=== PATIENT | male | born 1945 | race Caucasian/White ===

== ENCOUNTER 2020-12-11 09:15 | Day surgery (SDC) | payer OTHER ==
[2020-12-07 13:34] LABS: MPV 8.3 fL (7.6-11.3); RBC Red Blood Cell Count 4.24 M/uL (4.33-5.43)
[2020-12-07 13:38] LABS: Protime INR 1.16
--- NOTE | 2020-12-07 13:48 | RAD REPORT ---
EXAM DESCRIPTION: Javad Merchant (2 Views)12/07/2020 1:37 pm CLINICAL HISTORY: Preop for genitourinary surgery COMPARISON: 2019 FINDINGS: The lungs appear clear of acute infiltrate. The heart is normal size IMPRESSION: No acute abnormalities displayed
[2020-12-07 14:13] LABS: Potassium 4.7 mmol/L (3.5-5.1)
--- NOTE | 2020-12-10 07:10 | EKG ---
Test Date: 2020-12-07 Test Time: 12:05:44 Marking Stitcher: PAUL MEASUREMENT RESULTS: Intervals: Rate: 54 CO: 152 QRSD: 88 QT: 396 QTc: 375 [place]: P: 61 CO: 152 QRS: 54 T: 21 INTERPRETIVE STATEMENTS: Sinus bradycardia with occasional premature ventricular complexes Otherwise normal ECG Compared to ECG 10/26/2019 12:37:03 Ventricular premature complex(es) now present Electronically Signed On 12-10-20 07:05:04 CDT by Catarino Franklin
[2020-12-11] MEDS ORDERED: Ringers Lactate 1,000 ML IV ONE (10:00)
[2020-12-11] MEDS ORDERED: CEFAZOLIN/NS 1gm 1 GM/50 ML BAG ONE (10:00)
[2020-12-11] MEDS ORDERED: MIDAZOLAM HCL 2 MG/2 ML INJ ONE (11:40)
[2020-12-11] MEDS ORDERED: FENTANYL CITR 100 MCG/2 ML ONE (11:40)
[2020-12-11] MEDS ORDERED: propofoL 200 MG/20 ML VIAL IV ONE (11:40)
[2020-12-11] MEDS ORDERED: LIDOCAINE 1% MPF 5 ML VIAL ONE (11:41)
[2020-12-11] MEDS ORDERED: dexAMETHasone 10 MG/ML VIAL ONE (12:31)
[2020-12-11] MEDS ORDERED: GLYCOPYRROLATE 0.2 MG/ML SYR ONE (12:53)
[2020-12-11] MEDS ORDERED: EPHEDRINE SULF 50 MG/ML VIAL ONE (13:10)
[2020-12-11] MEDS ORDERED: NA CHLORIDE 0.9% 1,000 ML ONE (13:27)
[2020-12-11] MEDS ORDERED: CODEINE 30MG/APAP 300MG TAB PO PRN (13:44)
[2020-12-11] MEDS ORDERED: CODEINE 30MG/APAP 300MG TAB ONE (14:32)
[2020-12-11 14:43] VITALS: TEMP 97.1; O2SAT 99
[2020-12-11 14:46] VITALS: BP 140/71
--- NOTE | 2020-12-11 17:35 | RAD REPORT ---
EXAM DESCRIPTION: RAD - Urography Retrograde - 12/11/2020 3:07 pm CLINICAL HISTORY: STENT COMPARISON: No comparisons FINDINGS: Total fluoro time: 0.2 minutes
--- NOTE | 2020-12-12 04:14 | OP ---
Date of Procedure: 12/11/2020 Surgeon: SHAYY WALLACE Preoperative Diagnoses: 1.Retained bilateral ureteral stents. 2.Retroperitoneal fibrosis. Postoperative Diagnoses: 1.Retained bilateral ureteral stents. 2.Retroperitoneal fibrosis. 3.Retracted right ureteral stent with coil in distal ureter within the ureteral orifice. Principal Procedures: 1.Cystoscopy with left ureteral stent exchange. 2.Bilateral retrograde pyelographies. 3.Right ureteroscopy with complicated stent grasping and delivery of the coil to the intravesical sp efrain. 4.Right ureteral stent exchange. Indication For Procedure: Mr. 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 He initially had a percutaneous nephrostomy tube placed, but has been managed with stent exchanges over the last 19 or 20 of those years, since 2001. He presents with signs of chronic kidney disease with a creatinine between 3.2 and 3.5, and I couns eled him preoperatively as it was my first time meeting him that in the setting of extrinsic compress ion from the retroperitoneal fibrosis, the stents may not be adequately decompressing his upper tract s and may be contributing to the chronic kidney function decline. He seems surprised by the idea brett t he did not have normal renal function, but it was clear that this has been present for some time. I explained that while it was prudent to exchange the stents today, because he has had them for over year at this point and we need to simply prevent infection and incrustation, he may yet require addit ional procedural intervention to manage ongoing obstruction causing further deterioration of his eden l function. Procedure Note: The patient was consented in the preoperative holding area before being transferred to the operative suite, where general anesthesia was induced. He was given 1 g Ancef IV antimicrobia l prophylaxis given his aberrant renal function. Pneumo boots were provided for DVT prophylaxis. He was placed in the lithotomy position, padded and secured to the table appropriately. His genitalia were prepped using Hibiclens and was draped in standard fashion. The case was begun using a 22-Frenc h rigid cystoscope to traverse the urethra and into the bladder. There was evidence of significant e levation of median bar with projection of a median lobe that made visualization of the ureteral orifi stevan difficult; however, I was able to decompress his bladder of significant cloudy urine and irrigate d via the cystoscope until I was able to visualize the internal components of the bladder. There wer e no other concerning mucosal lesions or stones within the bladder. The left ureteral stent was note d to be emanating from the left ureteral orifice with the coil on the contralateral side of his bladd er due to distal displacement of the stents. The right ureteral orifice was visualized, but the coil of the stent was not visualized. As a result, I performed fluoroscopic imagery, which confirmed the presence of bilateral ureteral stents with the right coil inside of the distal ureter and not outsid e of the ureteral orifice. As a result, I grasped the left ureteral stent and delivered it via the m eatus with ease before passing a Sensor wire into the putative collecting system on the left side. I then performed a left retrograde pyelogram. Left retrograde pyelography: Using a dual-lumen catheter passed over the indwelling Sensor wire, a 70:30 mixture of Omnipaque and saline was injected via the second lumen of the dual-lumen catheter and did propagate into a dilated collecting system with hydronephrosis and caliectasis. There was somewhat of a bifid collecting syst em with the upper pole having a very narrow and long infundibulum it from the mid and lowe r pole segments of the kidney. There was irregularity of the ureter distally and along the entirety of the course up until the UPJ. As a result, I then left the wire in place and turned my attention t o the left ureteral orifice. I then exchanged the cystoscope for a semi-rigid ureteroscope, which I navigated under direct vision via the urethra and into his bladder. I was then able to find my way into the right ureteral orifice and within 2 cm of the ureteral orifice entry, the coil of the right ureteral stent was noted. Atte mpts to grasp the stent using graspers small enough to go through the channel of the ureteroscope wer e thwarted due to the inability of the grasper to adequately grasp the stent and deliver it distally. After multiple attempts and without sufficient stronger grasper available, I then passed a Bentson guidewire alongside the stent and into the upper pole of the kidney as visualized fluoroscopically. I then removed the ureteroscope and passed the cystoscope back into his bladder utilizing some semi-r igid ureteroscopic graspers via the cystoscope to place them within the ureteral orifice and using fl uoroscopic guidance, grasped the coil of the displaced ureteral stent and delivered it outside of the ureteral orifice. This was successful and so I was able to then deliver the entirety of the stent o utside of his body. I then passed the dual-lumen catheter over the [employer] guidewire and again perfo rmed a retrograde pyelogram on the right side. Right retrograde pyelography: Using a similar 70:30 mixture of Omnipaque and saline, the contrast mixture was injected via the seco nd lumen of the dual-lumen catheter and did propagate up an irregular distal ureter before entry agai n into a mildly hydronephrotic renal pelvis on the right side with caliectasis. Of note, on the righ t side, the collecting system was more of a bifid system with the upper and lower pole moieties about equally distributed in terms of volume. I then placed a 7-Latvian by 26 cm double-J left ureteral st ent with a coil observed fluoroscopically within the upper pole of the left kidney and one cystoscopi herminio formed within the bladder. I then replaced the right ureteral stent into the bifid lower pole segment of the right kidney with a coil observed fluoroscopically there and one cystoscopically forme d in the bladder. The right stent was 7-Latvian by 28 cm in length. I then decompressed his bladder of fluid and urine, and the patient was taken out of the lithotomy position. He was then transferred to a stretcher and then to the recovery room in good condition. Complications: None. Discharge Disposition: I would like for him to follow up with nurse practitioner, Anum, within t he next 2 to 4 weeks, where order should be given to recheck his creatinine and assess for improvemen t versus worsening or stability of his renal function. If no signs of improvement and his creatinine remains between 3.0 and 3.5, a MAG3 Lasix renogram should be considered to assess for ongoing functi onal obstruction, which may require management with a percutaneous nephrostomy tube if the split eden l function is preserved bilaterally. If significant improvement in his renal function does occur, wh ile consideration may still be given to a MAG3 Lasix renogram, he may wish to simply continue with th e stent exchanges and avoid the need for percutaneous nephrostomy tube. Ultimately, discussion and c onsideration for bilateral ureterolysis may be held depending on the extent and nature of his prior a bdominal surgeries, which may make such a robotic approach difficult. 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 NOELLE/MICHAEL Voice ID: [id number] Report ID: [id number]
== END 2020-12-11 14:35 | disposition home or self-care (01) ==
LOC: PRE 09:15
PROVIDERS: ATTEND Urology
PROC: 0T788DZ Dilation of Bilateral Ureters with Intraluminal Device, Via Natural or Artificial Opening Endoscopic (ICD-10-PCS; principal; 2020-12-11 11:15)
DX: N13.5 Crossing vessel and stricture of ureter without hydronephrosis (principal); I25.10 Atherosclerotic heart disease of native coronary artery without angina pectoris; N18.9 Chronic kidney disease, unspecified; Z20.822 Contact with and (suspected) exposure to COVID-19
CPT/HCPCS: 93005; 87088; 85025; 87086; 80048; 36415; 85610; 85730; 71046; 74420; 52332; U0003; J2704; J2250; J3010; J1100; J0690; J7120; J7030

== ENCOUNTER 2021-06-25 10:13 | Day surgery (SDC) | payer OTHER ==
[2021-06-20 12:49] LABS: Absolute Lymphocytes (CBC) 0.9 K/uL (0.7-4.9); Hematocrit 34.8 % (39.6-49.0); Lymphocytes % 15.7 % (15.3-44.8); MPV 8.1 fL (7.6-11.3); RBC Red Blood Cell Count 4.26 M/uL (4.33-5.43)
--- NOTE | 2021-06-20 12:58 | RAD REPORT ---
EXAM DESCRIPTION: RAD - Chest Pa And Lat (2 Views) - 06/20/2021 12:50 pm CLINICAL HISTORY: Pre op pending stent exchange COMPARISON: Chest Pa And Lat (2 Views) dated 12/07/2020; Abdomen 1 View (KUB) dated 11/15/2019; Chest Pa And Lat (2 Views) dated 10/26/2019; Abdomen 1 View (KUB) dated 01/24/2019 FINDINGS: Lines: None. Lungs: No evidence of edema or pneumonia. Pleural: No significant pleural effusions or pneumothorax. Cardiac: The heart size is within normal limits. Bones: No acute fractures. Bridging osteophytes in the spine. Other: IMPRESSION: No acute cardiopulmonary disease.
[2021-06-20 13:04] LABS: Potassium 4.7 mmol/L (3.5-5.1)
[2021-06-25] MEDS ORDERED: Ringers Lactate 1,000 ML IV ONE (10:38)
[2021-06-25] MEDS ORDERED: CEFAZOLIN/SWI 2gm 2 GM/20 ML SYR ONE (10:38)
[2021-06-25] MEDS ORDERED: propofoL 200 MG/20 ML VIAL IV ONE (12:23)
[2021-06-25] MEDS ORDERED: LIDOCAINE 1% MPF 5 ML VIAL ONE (12:23)
[2021-06-25] MEDS ORDERED: FENTANYL CITR 100 MCG/2 ML ONE (12:23)
[2021-06-25] MEDS ORDERED: NS 0.9% VIAL 10 ML ONE (13:00)
[2021-06-25] MEDS ORDERED: EPHEDRINE SULF 50 MG/ML VIAL ONE (13:00)
[2021-06-25] MEDS ORDERED: ONDANSETRON 4 MG/2 ML VIAL ONE (13:09)
[2021-06-25] MEDS: CEFTRIAXONE 1,000 MG in NA CHLORIDE 0.9% 50 ML IVPB ONE ×2 (13:29→13:30)
--- NOTE | 2021-06-25 13:58 | RAD REPORT ---
EXAM DESCRIPTION: RAD - Urethrocystogrphy Retrograde - 06/25/2021 1:44 pm FINDINGS: There were 24 portable images obtained during fluoroscopic assisted placement of bilateral ureteral stents. Images show stepwise placement of the stents with no suspicious or unexpected findi ng. FL TIME 1:22 DOSE 30.2
[2021-06-25 15:27] VITALS: BP 142/62; TEMP 98; O2SAT 98
--- NOTE | 2021-06-26 15:12 | OP ---
Surgeon: SHAYY WALLACE Preoperative Diagnoses: 1. Retroperitoneal fibrosis. 2. Chronic kidney disease stage 4. Postoperative Diagnoses: 1. Retroperitoneal fibrosis. 2. Chronic kidney disease stage 4. 3. Bilateral ureteral diverticula. Procedures: 1. Cystoscopy. 2. Bilateral retrograde pyelography. 3. Bilateral ureteral stents exchanged. Indication For Procedure: Mr. Clifton is a 76-year-old gentleman with retroperitoneal fibrosis since 2001, contributing to his chronic kidney disease with percutaneous nephrostomy tube initially placed with bilateral ureteral stents in place since 2001. He has undergone prior bilateral ureteral stents exchanged, last completed 12/11/2020, but despite this there has been poor drainage persistent on MAG3 renography done on 01/04/2021. Of note, he also had cystoscopic evaluation revealing BPH with massive lateral lobar hypertrophy and a median lobar intravesical projection abutting and obscuring the ureteral orifices bilaterally, but lower urinary symptoms improved on Flomax. I have counseled him on many occasions that stents are a poorly effective method of renal preservation and drainage in the setting of extrinsic compression due to the retroperitoneal fibrosis, and we have discussed his options would be to place a percutaneous nephrostomy tube versus consider bilateral ureterolysis. He has been reticent to proceed, but we had that discussion again today in the preoperative holding area and he will consider it further. Procedure In Detail: The patient was consented in the preoperative holding area before being transferred to operative suite where general anesthesia was induced. He was given Ancef 2 g IV antimicrobial prophylaxis and Pneumoboots were provided for DVT prophylaxis. He was placed in the lithotomy position, padded and secured to the table appropriately. His genitalia were prepped using Hibiclens and draped in standard fashion. The case was begun using a 22-Greek rigid cystoscope to traverse the urethra and enter his bladder. As had been previously noted, there was massive intravesical projection of a median lobe that did somewhat obscure the ureteral orifices, but the stents were noted to emanate from the ureteral orifices as visualized by medializing the median lobe. Of note, the urine was significantly cloudy with initial decompression of his bladder; so a sample of that urine was collected and sent for culture. I then irrigated his bladder to clear the cloudiness and debris as there was some odor residual within the urine. I also then requested and gave him an additional 1 g ceftriaxone for additional antimicrobial prophylaxis though his preoperative urine culture revealed less than 10,000 colonies mixed xin. I then grasped the right ureteral stent and delivered it to the meatus as confirmed fluoroscopically with the tip still within the proximal ureter. I was then able to pass a Sensor wire up the stent and coiled it within the putative collecting system. Right retrograde pyelography: Using a 70:30 mixture of Omnipaque and saline, I advanced a dual-lumen catheter over the Sensor wire into the distal ureter and injected contrast performing a retrograde pyelogram. The contrast did collect within a portion of the distal ureter just beyond the UVJ consistent with ureteral diverticulum suggestive of obstruction further down at the level of the ureterovesical junction. Beyond the diverticulum, which extended probably 2-3 cm along the distal ureter, the remainder of the ureter was without significant hydronephrosis, and there was no significant pelvocaliectasis noted. As a result, I then turned my attention to his left side where the stent on that side was again grasped using an alligator grasper and delivered to the meatus. As before, I used a Bentson guidewire this time to pass up the stent and coil it within the putative collecting system. I then attempted to pass a dual-lumen catheter over the Bentson guidewire, but the median lobe caused the dual-lumen catheter tip to divert medially and threatened displacement of the wire. As a result, I was unable to cannulate the ureteral orifice using the dual-lumen catheter; so I removed it and utilized a 5-Greek ureteral access catheter passed over the wire, which I was able to navigate all the way into the collecting system. I then removed the Bentson guidewire to perform the retrograde pyelogram. Left retrograde pyelography: Again, using the 70:30 mixture of Omnipaque and saline, contrast was injected via the lumen of the 5-Greek ureteral access catheter and did delineate the renal pelvis and calyces, which did not have a significant degree of pelvocaliectasis. I then backed the 5-Greek ureteral access catheter just beyond the ureteropelvic junction where there was some evidence of UPJ obstruction on the left, but the contrast did enter the renal pelvis. I then replaced the Bentson guidewire into the collecting system as observed fluoroscopically and removed the 5-Greek ureteral access catheter, observing the contrast to propagate down the mid and into the distal ureter where again on the left side, a ureteral diverticulum was noted just proximal to the ureterovesical junction on the left as well that was approximately 2-3 cm in length along the ureter. Contrast did collect in this location before entry into the bladder. Again, this was suggestive of the potential for left UVJ obstruction in addition to left UPJ obstruction. As a result, I then utilized a 7-Greek x 26 cm double-J stent passed over the [employer] guidewire into the collecting system with ease and a coil was formed fluoroscopically within the renal pelvis with one cystoscopically formed within his bladder. I then back loaded the Sensor wire via the cystoscope and performed a similar placement of a right 7-Greek x 26 cm double-J ureteral stent. Again, a coil was confirmed fluoroscopically within the renal pelvis as one was visualized within the bladder. I then decompressed his bladder of fluid and urine and some small blood clots before the case was completed. Complications: None. Findings: 1. Right UVJ obstruction and distal ureteral diverticulum. 2. Left UPJ obstruction, left ureterovesical junction obstruction, and left distal ureteral diverticulum. Discharge Disposition: We will follow up the results of the urine culture and alter his antimicrobial therapy as necessary. Otherwise, followup should be established within the next 4-6 weeks where we will recheck his renal function, preferably prior to that visit, to see if it remains stable or potentially improved with the stent exchanges. If not, he should give further consideration of the ureterolysis given the findings of left UPJ and UVJ obstruction, right UVJ obstruction and bilateral distal ureteral diverticula, which I appreciated on this evaluation and not previously appreciated. NOELLE/MICHAEL Voice ID: [id number] Report ID: [id number]
== END 2021-06-25 15:35 | disposition home or self-care (01) ==
LOC: OR 10:13
PROVIDERS: ATTEND Urology
PROC: 0T9880Z Drainage of Bilateral Ureters with Drainage Device, Via Natural or Artificial Opening Endoscopic (ICD-10-PCS; principal; 2021-06-25 12:00)
DX: N13.5 Crossing vessel and stricture of ureter without hydronephrosis (principal); N18.4 Chronic kidney disease, stage 4 (severe); Z20.822 Contact with and (suspected) exposure to COVID-19
CPT/HCPCS: 93005; 87088 ×2; 85025; 87086 ×2; 80048; 36415; 71046; 74450; 51610; 52332; U0002; J2704; J3010; J0690; J7120; J2405

== ENCOUNTER 2021-09-09 02:01 | Emergency (ER) | payer OTHER ==
[2021-09-09 02:24] LABS: Absolute Lymphocytes (CBC) 0.6 K/uL (0.7-4.9); Hematocrit 32.3 % (39.6-49.0); MCV 79.3 fL (80-100); MPV 7.8 fL (7.6-11.3); RBC Red Blood Cell Count 4.07 M/uL (4.33-5.43)
--- NOTE | 2021-09-09 02:31 | RAD REPORT ---
EXAM DESCRIPTION: CT - Head Brain Wo Cont - 09/09/2021 2:19 am CLINICAL HISTORY: Neuro deficit, acute, stroke suspected COMPARISON: <Comparisons> TECHNIQUE: All CT scans are performed using dose optimization technique as appropriate and may inclu de automated exposure control or mA/KV adjustment according to patient size. FINDINGS: No intracranial hemorrhage, hydrocephalus or extra-axial fluid collection.Mild generalized brain atrophy is present with mild periventricular and deep white matter chronic microvascular ische lonnie changes.No areas of brain edema or evidence of midline shift. Small areas of gliosis right occipi shwetha pole and cerebellar hemisphere likely related prior infarction. The paranasal sinuses and mastoids are clear. The calvarium is intact. IMPRESSION: No acute intracranial abnormality. If there is continued clinical concern for CVA, MR imaging of the brain would be recommended.
[2021-09-09 02:42] LABS: ALT/SGPT 16 U/L (12-78); AST/SGOT 14 U/L (15-37); Albumin 2.7 g/dL (3.4-5.0); Alkaline Phosphatase 91 U/L (45-117); BUN Blood Urea Nitrogen 41 mg/dL (7-18); Bicarbonate 19 mmol/L (21-32); Bilirubin Total 0.2 mg/dL (0.2-1.0); Glomerular Filtration Rate 16 ml/min (=/>90); Glucose Level 119 mg/dL (74-106); NT PRO-BNP 1064 pg/mL (<450); Potassium 4.2 mmol/L (3.5-5.1); Protein, Total 8.2 g/dL (6.4-8.2); Sodium Level 141 mmol/L (136-145); Troponin High Sensitivity 7.9 pg/mL (<58.9)
[2021-09-09] MEDS ORDERED: ASPIRIN 325 MG TAB ONE (02:46)
[2021-09-09] MEDS ORDERED: NA CHLORIDE 0.9% 1,000 ML ONE (02:46)
[2021-09-09] MEDS ORDERED: CLOPIDOGREL 75 MG TABLET ONE (02:46)
[2021-09-09 02:50] LABS: Bilirubin Direct < 0.1 mg/dL (0-0.2)
[2021-09-09 03:01] LABS: HDL Cholesterol 36 mg/dL (40-60); LDL Cholesterol, Calculated 129 mg/dL (<130)
--- NOTE | 2021-09-09 03:12 | EDPHYS ---
Physician Documentation [facility] Name: Mo Clifton Age: 76 yrs Sex: Male : 1945 Arrival Date: 09/09/2021 Time: 02:03 Bed 2 Private MD: ED Physician Aramis Mendosa HPI: 09/09 02:34 This 76 yrs old Unknown Male presents to ER via EMS with complaints of cva, left arm alaina weakness. 02:34 The patient's problem is reported as paresthesias, in left upper extremity. Onset: The alaina symptoms/episode began/occurred at 00:00. Duration: The episode is continuous. Context: symptoms became apparent upon waking. The symptoms are alleviated by nothing. The symptoms are aggravated by nothing. Associated signs and symptoms: Pertinent positives: gait abnormality, weakness. Severity of symptoms: At their worst the symptoms were moderate in the emergency department the symptoms are unchanged. Patient's baseline: Neuro: alert and fully oriented. The patient has not experienced similar symptoms in the past. 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 - Social history:: Smoking status: Patient denies any tobacco usage or history of. - Family history:: not pertinent. ROS: 02:34 Constitutional: Negative for fever, chills, and weight loss, Eyes: Negative for injury, alaina pain, redness, and discharge, ENT: Negative for injury, pain, and discharge, Neck: Negative for injury, pain, and swelling, Cardiovascular: Negative for chest pain, palpitations, and edema, Respiratory: Negative for shortness of breath, cough, wheezing, and pleuritic chest pain, Abdomen/GI: Negative for abdominal pain, nausea, vomiting, diarrhea, and constipation, Back: Negative for injury and pain, : Negative for injury, bleeding, discharge, and swelling, MS/Extremity: Negative for injury and deformity, Skin: Negative for injury, rash, and discoloration, Psych: Negative for depression, anxiety, suicide ideation, homicidal ideation, and hallucinations, Allergy/Immunology: Negative for hives, rash, and allergies, Endocrine: Negative for neck swelling, polydipsia, polyuria, polyphagia, and marked weight changes, Hematologic/Lymphatic: Negative for swollen nodes, abnormal bleeding, and unusual bruising. :34 Neuro: Positive for weakness, of the left arm. Exam: :34 Radiologist reports: negative alaina :34 Constitutional: This is a well developed, well nourished patient who is awake, alert, and in no acute distress. Head/Face: Normocephalic, atraumatic. Eyes: Pupils equal round and reactive to light, extra-ocular motions intact. Lids and lashes normal. Conjunctiva and sclera are non-icteric and not injected. Cornea within normal limits. Periorbital areas with no swelling, redness, or edema. ENT: Nares patent. No nasal discharge, no septal abnormalities noted. Tympanic membranes are normal and external auditory canals are clear. Oropharynx with no redness, swelling, or masses, exudates, or evidence of obstruction, uvula midline. Mucous membranes moist. Neck: Trachea midline, no thyromegaly or masses palpated, and no cervical lymphadenopathy. Supple, full range of motion without nuchal rigidity, or vertebral point tenderness. No Meningismus. Chest/axilla: Normal chest wall appearance and motion. Nontender with no deformity. No lesions are appreciated. Cardiovascular: Regular rate and rhythm with a normal S1 and S2. No gallops, murmurs, or rubs. Normal PMI, no JVD. No pulse deficits. Respiratory: Lungs have equal breath sounds bilaterally, clear to auscultation and percussion. No rales, rhonchi or wheezes noted. No increased work of breathing, no retractions or nasal flaring. Abdomen/GI: Soft, non-tender, with normal bowel sounds. No distension or tympany. No guarding or rebound. No evidence of tenderness throughout. Back: No spinal tenderness. No costovertebral tenderness. Full range of motion. Male : Normal genitalia with no discharge or lesions. Skin: Warm, dry with normal turgor. Normal color with no rashes, no lesions, and no evidence of cellulitis. Psych: Awake, alert, with orientation to person, place and time. Behavior, mood, and affect are within normal limits. :34 Musculoskeletal/extremity: ROM: full passive range of motion, limited active range of motion, in the left arm, Circulation is intact in all extremities. the left arm numbness, DVT Exam: no pain, no swelling, no tenderness, negative Homans' sign noted on exam, no appreciated bluish discoloration, no erythema, no increased warmth. 02:34 ECG was reviewed by the Attending Physician. [facility] Vital Signs: 02:15 BP 170 / 79; Pulse 69; Resp 16; Temp 98.4(TE); Pulse Ox 98% on R/A; Pain 0/10; jb4 02:42 Weight 72 kg (M); jb4 03:22 BP 162 / 70; Pulse 68; Resp 20; Pulse Ox 97% ; Pain 0/10; kl 03:45 BP 156 / 70; Pulse 68; Pulse Ox 99% on R/A; kl 04:46 BP 160 / 72; Pulse 66; Resp 18; Pulse Ox 99% on R/A; tw5 05:18 BP 158 / 66; Pulse 76; Resp 18; Pulse Ox 98% on R/A; Pain 0/10; kl NIH Stroke Scale Scores: 02:21 NIHSS Score: 6 jb4 02:34 NIHSS Score: 5 alaina [place] Coma Score: 03:13 Eye Response: spontaneous(4). Verbal Response: oriented(5). Motor Response: obeys alaina commands(6). Total: 15. MDM: 02:15 Patient medically screened. alaina 02:40 Differential diagnosis: CVA, TIA. Data reviewed: vital signs, nurses notes, lab test alaina result(s). 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 Test interpretation: by ED physician or midlevel provider: ECG, plain radiologic studies. Counseling: I had a detailed discussion with the patient and/or guardian regarding: the historical points, exam findings, and any diagnostic results supporting the discharge/admit diagnosis, lab results, radiology results, the need to transfer to another facility, for higher level of care, [facility] does not immediately have the required specialist. 09/09 02:08 Order name: Basic Metabolic Panel; Complete Time: 03:12 09/09 02:08 Order name: CBC with Diff; Complete Time: 02:33 la09/09 02:08 Order name: LFT's; Complete Time: 03:12 09/09 02:08 Order name: Magnesium; Complete Time: 03:12 [facility] 09/09 02:08 Order name: NT PRO-BNP; Complete Time: 03:12 [facility] 09/09 02:08 Order name: Troponin HS; Complete Time: 03:12 [facility] 09/09 02:08 Order name: XRAY Chest (1 view) [facility] 09/09 02:38 Order name: COVID-19 SARS RT PCR (Document "Date of Onset" if Symptomatic) 2 09/09 02:51 Order name: Lipid Profile; Complete Time: 03:12 [facility] 09/09 04:15 Order name: Urine Culture [facility] 09/09 04:26 Order name: Urinalysis [facility] 09/09 04:32 Order name: Urine Microscopic Only [facility] 09/09 02:08 Order name: EKG; Complete Time: 02:09 [facility] 09/09 02:08 Order name: Cardiac monitoring; Complete Time: 02:29 [facility] 09/09 02:08 Order name: EKG - Nurse/Tech; Complete Time: 02:29 [facility] 09/09 02:08 Order name: IV Saline Lock; Complete Time: 02:12 [facility] 09/09 02:08 Order name: Head Brain Wo Cont CT [facility] 09/09 02:28 Order name: Ct Stroke Brain Wo Cont; Complete Time: 02:33 [facility] 09/09 02:58 Order name: Carotid Artery Bilateral US [facility] 09/09 02:08 Order name: Labs collected and sent; Complete Time: 02:12 [facility] 09/09 02:08 Order name: O2 Per Protocol; Complete Time: 02:30 [facility] 09/09 02:08 Order name: O2 Sat Monitoring; Complete Time: 02:30 [facility] 09/09 02:11 Order name: Urine Dipstick-Ancillary (obtain specimen) la EC:34 Rate is 68 beats/min. Rhythm is regular. QRS [place] is Normal. [place] interval is normal. QRS alaina interval is normal. QT interval is normal. No Q waves. T waves are Normal. No ST changes noted. Clinical impression: NSR w/ Non-specific ST/T Changes and No evidence of ischemia. Interpreted by me. Reviewed by me. Administered Medications: 02:47 Drug: NS 0.9% 1000 ml Route: IV; Rate: 1000 ml; Site: left antecubital; kl 04:43 Follow up: IV Status: Completed infusion; IV Intake: 1000ml tw5 02:47 Drug: Aspirin Chewable Tablet 324 mg Route: PO; kl 03:41 Follow up: Response: No adverse reaction kl 02:47 Drug: PlaVIX (clopidogrel) 75 mg Route: PO; kl 03:41 Follow up: Response: No adverse reaction kl 03:20 Dru mg of (foLIC Acid 1 mg, NS 0.9% 1000 ml) Route: IVPB; Site: left antecubital; kl 04:43 Follow up: IV Status: Completed infusion tw5 04:43 Drug: Rocephin (cefTRIAXone) 1 grams Route: IV; Rate: per protocol; Site: left tw5 antecubital; 04:44 Follow up: IV Status: Completed infusion; IV Intake: 50ml tw5 Disposition Summary: 09/09/21 03:11 Transfer Ordered Transfer Location: [facility] alaina Reason: Higher level of care alaina Condition: Fair alaina Problem: new alaina Symptoms: have improved alaina Accepting Physician: to rosalinda renee(09/09/21 05:20) cleo Diagnosis - Cerebral infarction, unspecified - left upper extremity paralysis(09/09/21 03:18) alaina Forms: - Medication Reconciliation Form alaina - SBAR form alaina NIH Stroke Scale - NIH Stroke Score Date: 09/09/2021 Time: 02:21 Total Score = 6 1a. Level of Consciousness (LOC) - 0(Alert) 1b. Level of Consciousness (LOC) (Month \\T\\ Age) - 0(Both) 1c. LOC Commands (Open \\T\\ Closes Eyes/Change Management Lead) - 0(Both) 2. Best Gaze (Lateral Gaze Paresis) - 0(Normal) 3. Visual Field Loss - 0(No visual loss) 4. Facial Palsy - 0(Normal) 5a. Left Arm: Motor (10-second hold) - 4(No movement) 5b. Right Arm: Motor (10-second hold) - 0(No drift) 6a. Left Leg: Motor (5-second hold - always test supine) - 0(No drift) 6b. Right Leg: Motor (5-second hold - always test supine) - 0(No drift) 7. Limb Ataxia (finger/nose \\T\\ heel/patel - test with eyes open) - 0(Absent) 8. Sensory Loss (pinprick arms/legs/face) - 2(Severe to total loss) 9. Best Language: Aphasia (description/naming/reading) - 0(No aphasia) 10. Dysarthria (speech clarity - read or repeat words) - 0(Normal) 11. Extinction and Inattention (visual/tactile/auditory/spatial/personal) - 0(No abnormality) Initials: nina NIH Stroke Scale - NIH Stroke Score Date: 09/09/2021 Time: 02:34 Total Score = 5 1a. Level of Consciousness (LOC) - 0(Alert) 1b. Level of Consciousness (LOC) (Month \\T\\ Age) - 0(Both) 1c. LOC Commands (Open \\T\\ Closes Eyes/Change Management Lead) - 0(Both) 2. Best Gaze (Lateral Gaze Paresis) - 0(Normal) 3. Visual Field Loss - 0(No visual loss) 4. Facial Palsy - 0(Normal) 5a. Left Arm: Motor (10-second hold) - 4(No movement) 5b. Right Arm: Motor (10-second hold) - 0(No drift) 6a. Left Leg: Motor (5-second hold - always test supine) - 0(No drift) 6b. Right Leg: Motor (5-second hold - always test supine) - 0(No drift) 7. Limb Ataxia (finger/nose \\T\\ heel/patel - test with eyes open) - 0(Absent) 8. Sensory Loss (pinprick arms/legs/face) - 1(Mild to moderate loss) 9. Best Language: Aphasia (description/naming/reading) - 0(No aphasia) 10. Dysarthria (speech clarity - read or repeat words) - 0(Normal) 11. Extinction and Inattention (visual/tactile/auditory/spatial/personal) - 0(No abnormality) Initials: alaina Signatures: Dispatcher [employer] EDMl Leahy RN RN kl Anderson, Corey, MD MD cha Attema, Lee, SENIOR OFFICE ASSISTANT-C SENIOR OFFICE ASSISTANT-Cla1 Ky Pascual RN RN jb4 Wood, Tiffany tw5 Corrections: (The following items were deleted from the chart) 02:17 02:16 PMHx: None; nina jb4 02:28 02:13 Head Brain Wo Cont ordered. EDMS EDMS 02:51 02:43 LIPID PROFILE+C.LAB.BRZ ordered. EDMS EDMS 03:06 02:15 Head Angio+CT.RAD.BRZ ordered. EDMS EDMS 03:06 02:16 Neck Angio ordered. EDMS EDMS 03:16 03:15 Cervical Collar ordered. [facility] alaina 03:18 03:11 to [facility] alaina 03:18 03:11 Cerebral infarction, unspecified [facility] alaina 04:32 04:16 URINALYSIS+U.LAB.BRZ ordered. EDMS EDMS 05:13 03:17 Cervical Collar ordered. [facility] kl 05:20 03:18 to víctor, [facility]
--- NOTE | 2021-09-09 03:12 | ER ---
Nurse's Notes [facility] Name: Mo Clifton Age: 76 yrs Sex: Male : 1945 Arrival Date: 09/09/2021 Time: 02:03 Bed 2 Private MD: Diagnosis: Cerebral infarction, unspecified-left upper extremity paralysis Presentation: 09/09 02:15 Chief complaint: EMS states: Pt called reporting numbness and weakness on the left jb4 side. He fell trying to get out of bed. Bgl 124. Pt last known normal was at 1999 yesterday. Coronavirus screen: At this time, the client does not indicate any symptoms associated with coronavirus-19. Ebola Screen: No symptoms or risks identified at this time. Initial Sepsis Screen: Does the patient meet any 2 criteria? No. Patient's initial sepsis screen is negative. Does the patient have a suspected source of infection? No. Patient's initial sepsis screen is negative. Risk Assessment: Do you want to hurt yourself or someone else? Patient reports no desire to harm self or others. Onset of symptoms was September 08, 2021 at 20:00. Transition of care: patient was not received from another setting of care. 02:15 Method Of Arrival: EMS: [facility] jb4 02:15 Acuity: GLORIA 2 jb4 02:19 Care prior to arrival: IV initiated. 18 GA, in the left antecubital area, Glucose kl check: 122. 03:42 No acute neurological deficit is noted. kl 03:44 The patients blood glucose was checked before arriving to the hospital and was found to kl be normal. 03:46 Note report called to Manjit Gabriel RN. 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 Triage Assessment: 02:00 The onset of the patients symptoms was more than six hours ago. kl 03:42 General: Appears in no apparent distress. comfortable, Behavior is calm, cooperative. kl 03:43 The onset of the patients symptoms was September 08, 2021 at 20:00. kl 03:44 Neuro: Reports paresthesias in left arm. 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 - Social history:: Smoking status: Patient denies any tobacco usage or history of. - Family history:: not pertinent. Screenin:39 Abuse screen: Denies threats or abuse. Nutritional screening: No deficits noted. kl Tuberculosis screening: No symptoms or risk factors identified. Fall Risk Fall in past 12 months (25 points). Secondary diagnosis (15 points) impaired mobility, IV access (20 points). Assessment: 02:17 VAN Scoring: Arm Drift: Flaccid/no antigravity Visual Disturbance: No visual jb4 disturbance noted. Aphasia: No aphasia noted. Neglect: No neglect noted. 02:26 The patient has not been NPO before screening. The patient is alert, and able to follow jb4 commands. The patient does not exhibit slurred or garbled speech. The patient is not exhibiting difficulty speaking. The patient does not exhibit difficulty understanding words. The patient is able to swallow own secretions with no drooling or need for suction. Patient tolerated one teaspoon of water. No drooling, immediate coughing, gurgling, or clearing of the throat was noted. The patient tolerated 90mL of water. No drooling, immediate coughing, gurgling, or clearing of the throat was noted. The patient passed the bedside swallow screening. Oral medications may be given as ordered. Contact Physician for further diet orders. Provider notified of bedside swallow screening results: Aramis Mendosa MD. 03:40 TNKase (Tenecteplase) Screening:. Reassessment: Patient appears in no apparent distress at this time. No changes from previously documented assessment. Patient and/or family updated on plan of care and expected duration. Pain level reassessed. Patient is alert, oriented x 3, equal unlabored respirations, skin warm/dry/pink. Pain: Denies pain. 03:43 Neuro: Level of Consciousness is awake, alert, obeys commands, Oriented to person, kl place, time, situation, Manager Waste[employer] are absent on left . Speech is normal, Facial symmetry appears normal, Pupils are PERRLA. 04:44 Reassessment: Patient states feeling better. Patient states symptoms have improved. tw5 Vital Signs: 02:15 BP 170 / 79; Pulse 69; Resp 16; Temp 98.4(TE); Pulse Ox 98% on R/A; Pain 0/10; jb4 02:42 Weight 72 kg (M); jb4 03:22 BP 162 / 70; Pulse 68; Resp 20; Pulse Ox 97% ; Pain 0/10; kl 03:45 BP 156 / 70; Pulse 68; Pulse Ox 99% on R/A; kl 04:46 BP 160 / 72; Pulse 66; Resp 18; Pulse Ox 99% on R/A; tw5 05:18 BP 158 / 66; Pulse 76; Resp 18; Pulse Ox 98% on R/A; Pain 0/10; kl [place] Coma Score: 03:13 Eye Response: spontaneous(4). Verbal Response: oriented(5). Motor Response: obeys [facility] commands(6). Total: 15. NIH Stroke Scale Scores: 02:21 NIHSS Score: 6 jb4 02:34 NIHSS Score: 5 [facility] ED Course: 02:03 Patient arrived in ED. mw2 02:15 Aramis Mendosa MD is Attending Physician. alaina 02:16 Triage completed. jb4 02:16 Arm band placed on right wrist. jb4 02:20 XRAY Chest (1 view) In Process Unspecified. EDMS 02:28 Ct Stroke Brain Wo Cont In Process Unspecified. EDMS 02:30 Patient has correct armband on for positive identification. Bed in low position. Call [facility] light in reach. Side rails up X2. Warm blanket given. funeral pre arrangement specialist on. Pulse ox on. NIBP on. 02:30 Basic Metabolic Panel Sent. 5 02:30 LFT's Sent. 5 02:30 Magnesium Sent. 5 02:30 NT PRO-BNP Sent. 5 02:30 Troponin HS Sent. 5 02:31 Initial lab(s) drawn, by ED staff, sent to lab. EKG done, by ED staff, reviewed by luz marina Mendosa MD. Maintain EMS IV. Dressing intact. Good blood return noted. Site clean \\T\\ dry. 02:38 initiated a transfer with Gifty from [facility]. mw2 02:41 Ky Pascual, RN is Primary Nurse. 4 02:44 COVID-19 SARS RT PCR (Document "Date of Onset" if Symptomatic) Sent. mh5 02:44 COVID swab sent to lab. mh5 02:56 [facility] won't have a bed till 0700 this morning. mw2 02:58 initiated a transfer with Gracy from [facility]. mw2 03:[address] Mendosa with the Doctor from [facility]. mw2 03:43 No provider procedures requiring assistance completed. Patient transferred, IV remains kl in place. 03:50 Carotid Artery Bilateral US In Process Unspecified. EDMS 04:20 [facility] won't have a truck till after 6. mw2 04:21 [facility] ETA 1 hour. mw2 Administered Medications: 02:47 Drug: NS 0.9% 1000 ml Route: IV; Rate: 1000 ml; Site: left antecubital; kl 04:43 Follow up: IV Status: Completed infusion; IV Intake: 1000ml tw5 02:47 Drug: Aspirin Chewable Tablet 324 mg Route: PO; kl 03:41 Follow up: Response: No adverse reaction kl 02:47 Drug: PlaVIX (clopidogrel) 75 mg Route: PO; kl 03:41 Follow up: Response: No adverse reaction kl 03:20 Dru mg of (foLIC Acid 1 mg, NS 0.9% 1000 ml) Route: IVPB; Site: left antecubital; kl 04:43 Follow up: IV Status: Completed infusion tw5 04:43 Drug: Rocephin (cefTRIAXone) 1 grams Route: IV; Rate: per protocol; Site: left tw5 antecubital; 04:44 Follow up: IV Status: Completed infusion; IV Intake: 50ml tw5 Medication: 03:45 VIS not applicable for this client. kl Intake: 04:43 IV: 1000ml; Total: 1000ml. tw5 04:44 IV: 50ml; Total: 1050ml. tw5 Outcome: 03:11 ER care complete, transfer ordered by . alaina 03:41 Transferred by ground EMS to [facility]. kl 03:41 Transferred X-rays sent w/ patient. 03:41 Condition: stable 03:41 Instructed on the need for transfer, Demonstrated understanding of instructions. 05:20 Patient left the ED. NIH Stroke Scale - NIH Stroke Score Date: 09/09/2021 Time: 02:21 Total Score = 6 1a. Level of Consciousness (LOC) - 0(Alert) 1b. Level of Consciousness (LOC) (Month \\T\\ Age) - 0(Both) 1c. LOC Commands (Open \\T\\ Closes Eyes/Concrete Layer) - 0(Both) 2. Best Gaze (Lateral Gaze Paresis) - 0(Normal) 3. Visual Field Loss - 0(No visual loss) 4. Facial Palsy - 0(Normal) 5a. Left Arm: Motor (10-second hold) - 4(No movement) 5b. Right Arm: Motor (10-second hold) - 0(No drift) 6a. Left Leg: Motor (5-second hold - always test supine) - 0(No drift) 6b. Right Leg: Motor (5-second hold - always test supine) - 0(No drift) 7. Limb Ataxia (finger/nose \\T\\ heel/patel - test with eyes open) - 0(Absent) 8. Sensory Loss (pinprick arms/legs/face) - 2(Severe to total loss) 9. Best Language: Aphasia (description/naming/reading) - 0(No aphasia) 10. Dysarthria (speech clarity - read or repeat words) - 0(Normal) 11. Extinction and Inattention (visual/tactile/auditory/spatial/personal) - 0(No abnormality) Initials: jb4 NIH Stroke Scale - NIH Stroke Score Date: 09/09/2021 Time: 02:34 Total Score = 5 1a. Level of Consciousness (LOC) - 0(Alert) 1b. Level of Consciousness (LOC) (Month \\T\\ Age) - 0(Both) 1c. LOC Commands (Open \\T\\ Closes Eyes/Concrete Layer) - 0(Both) 2. Best Gaze (Lateral Gaze Paresis) - 0(Normal) 3. Visual Field Loss - 0(No visual loss) 4. Facial Palsy - 0(Normal) 5a. Left Arm: Motor (10-second hold) - 4(No movement) 5b. Right Arm: Motor (10-second hold) - 0(No drift) 6a. Left Leg: Motor (5-second hold - always test supine) - 0(No drift) 6b. Right Leg: Motor (5-second hold - always test supine) - 0(No drift) 7. Limb Ataxia (finger/nose \\T\\ heel/patel - test with eyes open) - 0(Absent) 8. Sensory Loss (pinprick arms/legs/face) - 1(Mild to moderate loss) 9. Best Language: Aphasia (description/naming/reading) - 0(No aphasia) 10. Dysarthria (speech clarity - read or repeat words) - 0(Normal) 11. Extinction and Inattention (visual/tactile/auditory/spatial/personal) - 0(No abnormality) Initials: alaina Signatures: Dispatcher [employer] EDMS Ml Oliver RN RN kl Anderson, Corey, MD MD cha Bryson, James, RN RN jb4 Sukhwinder, Zabrina 5 Akira, Esther 2 Abdulkadir, Amelia 5 Corrections: (The following items were deleted from the chart) 02:17 02:16 PMHx: None; jb4 jb4 02:27 02:15 Chief complaint: EMS states: Pt called reporting numbness and weakness on jb4 the left side. He fell trying to get out of bed. Bgl 124 jb4 02:27 02:15 Onset of symptoms was September 09, 2021 jb4 jb4 02:28 02:18 In radiology for Head Brain Wo Cont. EDMS EDMS 02:51 02:44 LIPID PROFILE+C.LAB.BRZ drawn and sent. [facility] EDMS
[2021-09-09] MEDS ORDERED: FOLIC ACID 5 MG/ML VIAL ONE (03:23)
[2021-09-09 04:26] LABS: Urine Appearance TURBID (Clear); Urine Bilirubin Negative (Negative); Urine Blood 2+ (Negative); Urine Color Yellow (Yellow); Urine Glucose Negative (Negative); Urine Protein 2+ (Negative); Urine Urobilinogen 0.2 mg/dL (0.2-1.0)
[2021-09-09 04:43] LABS: Urine Bacteria <20 /HPF (NONE SEEN); Urine RBC <5 /HPF (NONE SEEN); Urine Urothelial Cells <5 /HPF (NONE SEEN)
[2021-09-09] MEDS ORDERED: NA CHLORIDE 0.9% 50 ML ONE (04:44)
[2021-09-09] MEDS ORDERED: CEFTRIAXONE 1000 MG/VIAL ONE (04:44)
[2021-09-09 05:28] VITALS: TEMP 98.4
[2021-09-09 05:41] VITALS: BP 158/66; O2SAT 98
--- NOTE | 2021-09-09 13:45 | EKG ---
Test Date: 2021-09-09 Test Time: 02:28:48 High Risk Case Manager: EMELY MEASUREMENT RESULTS: Intervals: Rate: 68 DC: 168 QRSD: 84 QT: 370 QTc: 393 [place]: P: 50 DC: 168 QRS: 40 T: 45 INTERPRETIVE STATEMENTS: Normal sinus rhythm Normal ECG Compared to ECG 06/20/2021 11:17:47 No significant changes Electronically Signed On 09-09-21 13:44:06 CDT by Clemente Segal
--- NOTE | 2021-09-09 15:11 | RAD REPORT ---
EXAM DESCRIPTION: X-ray single view chest. CLINICAL HISTORY: 76 years Male, cva COMPARISON: Prior chest x-ray report from 06/20/2021. The image was not available for review. TECHNIQUE: Single portable x-ray view of the chest performed on 09/09/2021 at 2:15 AM FINDINGS: The lungs are well expanded and are clear. There is no evidence of a pneumothorax. The cardiac silhouette is normal in size and configuration. The mediastinal contours are normal. No acute osseous abnormality is identified. No acute soft tissue abnormalities are seen. Lines and tubes: None. Free air: None IMPRESSION: No evidence of acute intrathoracic disease. Electronically signed by: Janine Perez DO 09/09/2021 7:13 AM CDT Due to temporary technical issues with the PACS/Fluency reporting system, reports are being signed by the in house radiologists without review as a courtesy to insure prompt reporting. The interpreting radiologist is fully responsible for the content of the report.
--- NOTE | 2021-09-09 16:09 | RAD REPORT ---
EXAM DESCRIPTION: US - CP - 09/09/2021 3:48 am CLINICAL HISTORY: cva Headache, drowsiness COMPARISON: No comparisons TECHNIQUE: Real-time sonographic evaluation of both carotid systems was performed. Doppler interroga tion was performed with waveform tracing bilaterally. FINDINGS: Normal high resistance waveforms are noted in both external carotid arteries. The common c arotid arteries and internal carotid arteries show normal low resistance waveforms. There is moderate mixed plaque seen in both proximal internal carotid arteries. There is likely proxi mal left internal carotid artery stenosis present caused by plaquing. Right vertebral artery difficult to visualize. IMPRESSION: Moderate mixed plaquing is seen in both proximal internal carotid arteries. Moderate stenosis is likely present proximal left internal carotid artery. Suggest follow-up MRA or CTA of the neck vessels for further evaluation.
== END 2021-09-09 05:20 | disposition short-term general hospital (02) ==
LOC: ER 02:01
DX: I63.9 Cerebral infarction, unspecified (principal); R29.706 NIHSS score 6; Z88.1 Allergy status to other antibiotic agents; Z20.822 Contact with and (suspected) exposure to COVID-19
CPT/HCPCS: 96365; 96361; 93005; 87088; 85025; 87086; 80048; 36415; 83735; 80061; 80076; 84484; 83880; 70450; 71045; 93880; 96375; 99285; U0003; J7030; 81003; 81015

== ENCOUNTER 2021-12-24 09:21 | Day surgery (SDC) | payer OTHER ==
--- NOTE | 2021-12-21 16:58 | EKG ---
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
[2021-12-24] MEDS ORDERED: CEFAZOLIN SODIUM 2 GM/VIAL ONE (10:15)
[2021-12-24] MEDS ORDERED: Ringers Lactate 1,000 ML IV ONE (10:15)
[2021-12-24 10:53] VITALS: O2SAT 100
[2021-12-24] MEDS ORDERED: propofoL 200 MG/20 ML VIAL IV ONE (11:54)
[2021-12-24] MEDS ORDERED: FENTANYL CITR 100 MCG/2 ML ONE (11:54)
[2021-12-24] MEDS ORDERED: LIDOCAINE 1% MPF 10 ML AMPULE ONE (11:55)
[2021-12-24] MEDS ORDERED: ONDANSETRON 4 MG/2 ML VIAL ONE (12:19)
[2021-12-24] MEDS ORDERED: GLYCOPYRROLATE 0.2 MG/ML SYR ONE (12:36)
--- NOTE | 2021-12-24 13:08 | RAD REPORT ---
EXAM DESCRIPTION: RAD - Urethrocystogrphy Retrograde - 12/24/2021 12:55 pm FINDINGS: There were 16 portable KUB images obtained during fluoroscopic assisted placement of bilat eral ureteral stents. Images show stepwise placement of the stents. No suspicious or unexpected finding. Fluoro time was 20 seconds. Cumulative dose was 7.9 mGy.
[2021-12-24 13:19] VITALS: TEMP 96.9
[2021-12-24 14:03] VITALS: BP 143/69
--- NOTE | 2021-12-24 16:05 | OP ---
Surgeon: SHAYY WALLACE Preoperative Diagnoses: 1.Retroperitoneal fibrosis. 2.Bilateral ureteral obstruction. 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 Postoperative Diagnoses: 1.Retroperitoneal fibrosis. 2.Bilateral ureteral obstruction. 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 Principal Procedures: 1.Cystoscopy. 2.Bladder irrigation/washout. 3.Bilateral retrograde pyelographies. 4.Bilateral ureteral stents exchange. Indication For Procedure: Mr. 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 He has had chronic ureteral stents for several years now, and I counseled him on multiple occasions in the past about the potential ongoing damage to his kidne ys, the result of incomplete relief of the obstruction associated with having ureteral stents in plac e and the extrinsic compression from the retroperitoneal fibrosis. Despite this, he has been content with having the stents exchanged and presents today for further attempts of that. Procedure In Detail: The patient was consented in the preoperative holding area before being transfe rred to operative suite where general anesthesia was induced. He was given Ancef 2 g IV antimicrobia l prophylaxis and pneumo boots were provided for DVT prophylaxis. He was placed in the lithotomy pos ition, padded and secured to the table appropriately. His genitalia were prepped with Hibiclens and he was draped in standard fashion. The case was begun using a 22-[place] rigid cystoscope to traverse the urethra and into the bladder. Of note, significant prostatic urethral obstruction was again not ed with an intravesically projecting median lobe that obscured the ureteral orifices. Upon entry int o the bladder, there was significant cloudiness of the urine with significant degree of debris. As a result, I decompressed the bladder of this milky appearing urine and then irrigated his bladder on s everal occasions via the cystoscope with the saline irrigant. Once I could adequately visualize the intravesical space, I then used the cystoscope to lateralize the median lobe so that I could visualiz e the stent emanating initially from the left ureteral orifice and grasped it with an alligator grasp er. I then delivered the tip of the stent to the meatus leaving the proximal stent within the mid ur eter. I then passed a Sensor wire via the stent and coiled it within the putative upper pole of the kidney. I then removed the cystoscope leaving the wire in place and re-intubated his urethra alongsi de the wire back into the bladder. I then lateralized the median lobe this time to the left side to identify the right ureteral stent. This was an emanating several cm out of the right ureteral orific e; so when I found it alongside the bladder neck, I grasped the coil with an alligator grasper and ag ain delivered the tip via his meatus. Leaving the proximal end of the stent in the mid ureter, I aga in passed a Sensor wire via the stent coiling it within the putative upper pole of his right kidney. I then removed the stent over the wire and passed a 5-[place] ureteral access catheter over the wire all the way into the putative renal pelvis or upper pole calyx. I then removed the wire and injected contrast to perform a retrograde pyelogram. Right retrograde pyelography: Using a 70:30 mixture of Omnipaque and saline, contrast was injected via the 5-[place] ureteral access catheter and did delineate the upper pole calyx and infundibulum before lesser filling of his lower pole calyces was identified. He had a long infundibulopelvic segment from the upper pole that was di stinctly it from the lower pole segment, which accounts for the delayed nephrogram. While there was some efflux of contrast along the ureter, despite several additional minutes of observatio n, there was retention of contrast within the pelvis and calyces on the right side. I then replaced the Sensor wire via the 5-[place] ureteral access catheter into the upper pole of his kidney and removed the 5-[place] ureteral access catheter from the right side. I then passed a 5-Fren ureteral access catheter up the left Sensor wire into the putative upper pole of the left kidney a nd again performed a retrograde pyelogram. Left retrograde pyelography: Using a similar 70:30 mixture of Omnipaque and saline, the contrast mixture was injected via the 5-Fr [facility] ureteral access catheter and did delineate the upper pole as well as mid and lower pole calyces on the left side. As a result, with all of the catheters and wires in appropriate position, I then r eplaced the Sensor wire into his left kidney upper pole and removed the 5-[place] ureteral access cath eter. I then back-loaded the cystoscope over the wire for the left ureter and passed under direct vi jan a new 7-[place] Korean by 26 cm double-J ureteral stent. A coil was observed fluoroscopically within th e upper pole of the left kidney and 1 cystoscopically was formed within his bladder. I removed the c ystoscope and again back-loaded the right ureteral wire via the cystoscope and passed an additional 7 -[place] by 26 cm double-J stent again with a coil observed fluoroscopically within the upper pole of the right kidney and 1 cystoscopically within his bladder. I then decompressed his bladder of fluid and urine and removed the cystoscope. The case was completed. Complications: None. Discharge Disposition: Followup should be established in about 4-5 months interval assessment and re scheduling for next definitive ureteral stent exchange in about 6 months. If he chooses to consider additional surgical management of his ureteral obstruction or perhaps of his prostatic urethral obstr uction, an appointment may be established sooner to discuss that. NOELLE/MICHAEL Voice ID: [id number] Report ID: [id number]
== END 2021-12-24 14:46 | disposition home or self-care (01) ==
LOC: OR 09:21
PROVIDERS: ATTEND Urology
PROC: 3E1K88Z Irrigation of Genitourinary Tract using Irrigating Substance, Via Natural or Artificial Opening Endoscopic (ICD-10-PCS; 2021-12-24)
PROC: 0T9880Z Drainage of Bilateral Ureters with Drainage Device, Via Natural or Artificial Opening Endoscopic (ICD-10-PCS; principal; 2021-12-24 12:00)
DX: N13.5 Crossing vessel and stricture of ureter without hydronephrosis (principal); N40.1 Benign prostatic hyperplasia with lower urinary tract symptoms; N18.9 Chronic kidney disease, unspecified; E78.00 Pure hypercholesterolemia, unspecified; Z95.5 Presence of coronary angioplasty implant and graft; Z86.73 Personal history of transient ischemic attack (TIA), and cerebral infarction without residual deficits; Z88.1 Allergy status to other antibiotic agents
CPT/HCPCS: 93005; 87088; 87086; 80048; 36415; 74450; 51610; 52332; 51700; J2704; J3010; J7120; J2405

== ENCOUNTER 2022-07-15 08:16 | Day surgery (SDC) | payer OTHER ==
[2022-07-09 11:15] LABS: Hematocrit 30.3 % (39.6-49.0); Lymphocytes % 11.7 % (15.3-44.8); MPV 8.4 fL (7.6-11.3); RBC Red Blood Cell Count 3.65 M/uL (4.33-5.43)
[2022-07-09 11:30] LABS: Potassium 4.8 mEq/L (3.5-5.1)
== END 2022-07-15 10:00 | disposition home or self-care (01) ==
LOC: OR 08:16
PROVIDERS: ATTEND Urology
DX: C67.5 Malignant neoplasm of bladder neck (principal); C67.9 Malignant neoplasm of bladder, unspecified; N13.5 Crossing vessel and stricture of ureter without hydronephrosis; Z88.1 Allergy status to other antibiotic agents; Z53.8 Procedure and treatment not carried out for other reasons
CPT/HCPCS: 36415; 80048; 85025; 87086; 87088

== ENCOUNTER 2023-02-24 08:46 | Day surgery (SDC) | payer OTHER ==
[2023-02-09 10:29] LABS: Hematocrit 25.8 % (39.6-49.0); Lymphocytes % 7.1 % (15.3-44.8); MCV 90.7 fL (80-100); MPV 7.6 fL (7.6-11.3); Platelets 468 thou/uL (152-406); RBC Red Blood Cell Count 2.84 M/uL (4.33-5.43)
[2023-02-09 10:30] LABS: Absolute Lymphocytes (CBC) 0.6 K/uL (0.7-4.9)
[2023-02-09 10:44] LABS: Potassium 5.8 mEq/L (3.5-5.1)
[2023-02-09 10:56] LABS: Protime INR 1.22
[2023-02-09 12:15] LABS: Anisocytosis 2+; Blood Morphology Comment NOTED (NOT SEEN); Burr Cells 1+; Macrocytosis 1+; Platelet Estimate ADEQ; Rouleau NOTED; White Blood Cell Scan OK (OK)
[2023-02-24] MEDS ORDERED: Ringers Lactate 1,000 ML IV ONE (09:10)
[2023-02-24 10:17] LABS: Urine Bacteria >50 /HPF (<20); Urine Bilirubin NEGATIVE (Negative); Urine Blood 3+ (Negative); Urine Clarity Extremely Turbid (Clear); Urine Color Orange (Yellow); Urine Glucose NEGATIVE (Negative); Urine Protein 2+ (Negative); Urine RBC >50 /HPF (None Seen); Urine Urobilinogen Normal (Normal)
[2023-02-24 10:28] LABS: Potassium 5.2 mEq/L (3.5-5.1)
[2023-02-24] MEDS ORDERED: LIDOCAINE 1% MPF 5 ML VIAL ONE (10:39)
[2023-02-24] MEDS ORDERED: MIDAZOLAM HCL 2 MG/2 ML INJ ONE (10:39)
[2023-02-24] MEDS ORDERED: propofoL 200 MG/20 ML VIAL IV ONE (10:39)
[2023-02-24] MEDS ORDERED: ONDANSETRON 4 MG/2 ML VIAL ONE (10:39)
[2023-02-24] MEDS ORDERED: FENTANYL CITR 100 MCG/2 ML ONE (10:39)
[2023-02-24] MEDS: CEFAZOLIN SODIUM 1 GM/VIAL ONE ×2 (10:44→10:49)
[2023-02-24] MEDS ORDERED: EPHEDRINE SULF 50 MG/ML VIAL ONE (11:21)
[2023-02-24] MEDS: GEMCITABINE HCL 23.6 ML IS ONE ×2 (11:35→11:58)
[2023-02-24] MEDS: DOCEtaxeL 37.5 MG in NA CHLORIDE 0.9% 48.125 ML IV ONE ×2 (11:37→14:05)
[2023-02-24] MEDS ORDERED: CODEINE 30MG/APAP 300MG TAB PO PRN (12:24)
--- NOTE | 2023-02-24 12:33 | RAD REPORT ---
EXAM DESCRIPTION: RAD - Urethrocystogrphy Retrograde - 02/24/2023 12:22 pm CLINICAL HISTORY: STENT COMPARISON: None available. FINDINGS: Single-view was sent to PACS, documenting ureteral stent exchange procedure. No radiologis t was available for the procedure, nor will any image interpretation he provided. Please refer to the procedural report for additional details. Fluoroscopy time: 1 second. IMPRESSION: Documentation of fluoroscopy utilization as above.
[2023-02-24 13:19] VITALS: TEMP 96.5; O2SAT 98
[2023-02-24] MEDS ORDERED: LIDOCAINE JELLY 2% 5 ML SYRINGE TOP ONE (16:01)
[2023-02-24 17:55] VITALS: BP 130/60
--- NOTE | 2023-02-25 10:02 | OP ---
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 2.Status post induction sequential gemcitabine followed by docetaxel intravesical chemotherapy. 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 2.Status post induction sequential gemcitabine followed by docetaxel intravesical chemotherapy. 3.Suspected recurrent bladder tumors. Principle Procedures: 1.Cystoscopy with bladder biopsies and fulguration. 2.Transurethral resection of a bladder tumor. 3.Intravesical instillation of sequential gemcitabine 1 g followed by docetaxel 37.5 mg chemotherapy . 4.Placement of urethral Ibrahim catheter. Indication For Procedure: Mr. Clifton is a 77-year-old gentleman with multiple medical comorbidities including retroperitoneal fibrosis causing obstruction and chronic kidney disease post bilateral uret eral stents placed to attempt to manage the obstruction. He subsequently developed the presence of b ladder tumors which were revealed to be high-grade pathologic stage T1 urothelial carcinoma with squa mous differentiation and was given a dose of intravesical gemcitabine after resection, subsequently f ollowed by intravesical BCG immunotherapy. On restaging biopsies performed about 3 months later, the re was evidence of residual or recurrent tumor defining his cancer essentially as BCG refractory; so, he was recommended for an induction course of sequential gemcitabine followed by docetaxel chemother apy. This was completed, and he presents today for restaging evaluation. Procedure In Detail: The patient was consented in the preoperative holding area before being transfe rred to the operative suite where general anesthesia was induced. He was given Ancef 1 g IV antimicr obial prophylaxis, and pneumo boots were provided for DVT prophylaxis. He was placed in the lithotom y position, padded and secured to the table appropriately, and his genitalia was prepped with Hibicle ns before being draped in standard fashion. The case was begun using the 22-Togolese rigid cystoscope to traverse the urethra and into the bladder with relative ease. The bladder was decompressed of darin e cloudy appearing urine, but of note, his preoperative urine culture was negative and his urinalysis today was as remarkable as it has always been despite unremarkable cultures. As a result, I irrigat ed his bladder several times with the sterile water in order to clarify the visualization and then ayala rveyed his bladder in its entirety. Within the posterior wall of the bladder immediately in the ranjit on of the trigone, there was significant fibrinous structure which was likely partially necrotic tumo r from the prior induction course of gemcitabine, docetaxel chemotherapy. Within the right lateral w all, there was a smaller sessile papillary lesion approximately 1.1-1.5 cm in diameter and in the reg ion of the dome posteriorly, there was a diverticulum and surrounding the mouth of the diverticulum, there was significant erythema of the mucosa that surrounded it for several cm. As a result, I began by first biopsying the right lateral wall bladder tumor seen and sending that for pathologic analysi s. I then switched to a resectoscope where I superficially debrided the fibrinous tissue in the ranjit on of the trigone and sent that for pathologic analysis as trigone bladder tumor superficial. I then used cold cup biopsy forceps to sample multiple regions along the base of that tumor beneath the fib rinous debris that was removed, and I sent that for pathologic analysis as trigone deep bladder biops ies. I then replaced the bipolar loop and completely resected the entirety of the base of any residu al tumor in the trigone that was seen sending all of that tissue for pathologic analysis. I carefull y fulgurated the entirety of the base of the trigone tumor resected and fulgurated the right lateral wall area that had previously been biopsied. I then turned my attention to the rest of the bladder w here there was some plaque-like debris overlying the mucosa in several locations, which I scraped raymundo y. This was likely due to chronic inflammation. I then fulgurated any additional bleeding vessels b efore switching again to the cystoscope and cold cup biopsy forceps to sample the erythematous mucosa in the dome around the diverticulum present there. Then, using a Bugbee electrode, I fulgurated the base of the biopsy sites there until it was hemostatic. I then irrigated his bladder to free it of any and all circulating debris before removing the cystoscope. I then placed an 18-Togolese coude tipp ed Ibrahim catheter into his bladder with 15 cc of sterile water in the balloon, and I decompressed his bladder of fluid and urine. I then retrograde instilled 1 g of gemcitabine in 25 cc of normal salin e, 27.5 cc total volume, into his bladder with ease. I used a Anali clamp to keep the solution intra vesical, and then attached a leg bag for ease of subsequent decompression. The patient was then take n out of the lithotomy position, his genitalia was toweled off to prevent any potential skin contact from any spillage, and he was then awakened from general anesthesia after being taken out of the lith otomy position. He was transferred to a stretcher, and then transferred to the recovery room in good condition. Complications: None. Discharge Disposition: We will follow up the results of the pathology and if evidence of recurrent t umor but persistently nonmuscle invasive, consideration must be given to radical cystectomy, but he m ay be considered for a second intravesical induction course of BCG. If pathology is muscle invasive, cystectomy or potentially chemotherapy, radiation therapy concurrent may be required. Bilateral ure teral stent exchanges will likely be required in 3-6 months. They were not exchanged on today's [facility], last exchanged at the end of October 2022. NOELLE/MICHAEL Voice ID: [id number] Report ID: [id number]
== END 2023-02-24 16:46 | disposition home or self-care (01) ==
LOC: OR 08:46
PROVIDERS: ATTEND Urology
PROC: 3E0K705 Introduction of Other Antineoplastic into Genitourinary Tract, Via Natural or Artificial Opening (ICD-10-PCS; 2023-02-24)
PROC: 0TBB8ZX Excision of Bladder, Via Natural or Artificial Opening Endoscopic, Diagnostic (ICD-10-PCS; 2023-02-24)
PROC: 0TBB8ZZ Excision of Bladder, Via Natural or Artificial Opening Endoscopic (ICD-10-PCS; principal; 2023-02-24 10:30)
DX: C67.9 Malignant neoplasm of bladder, unspecified (principal)
CPT/HCPCS: 52234; 51720; 52204; 87088 ×2; 85025; 81001; 87086 ×2; 80048 ×2; 36415 ×2; 85610; 88305; 88307; 74450; 51610; 96365; 96366; J9171; J9201; J2704; J2001; J2250; J3010; J2405; J7120; J0690; 88304